=== PATIENT | male | born 1945 | race Caucasian/White ===

== ENCOUNTER → 2016-06-26 | Outpatient (CLI) | payer OTHER ==
[~2016-06-26] MED LIST: ALLEGRA ALLERG180 MG PO; AUGMENTIN 875875 MG PO; CENTRUM SILVER1 EAC2 PO; COUMADIN 5 MG TA5 M1 PO; GLUCOSAMINE1000 MG PO; NEURONTIN300 MG PO; PERCOCET 5-3251 EACH PO; POTASSIUM GLUC500 MG PO; PREVACID30 MG PO; ZESTRIL5 MG PO; ZOSYN 3.3753.375 GM IV
== END ==
LOC: HYPER 06:58
DX: T81.89XA Other complications of procedures, not elsewhere classified, initial encounter (principal); S91.105A Unspecified open wound of left lesser toe(s) without damage to nail, initial encounter; E11.621 Type 2 diabetes mellitus with foot ulcer; L97.521 Non-pressure chronic ulcer of other part of left foot limited to breakdown of skin; E11.69 Type 2 diabetes mellitus with other specified complication; M86.09 Acute hematogenous osteomyelitis, multiple sites; E78.00 Pure hypercholesterolemia, unspecified; I10 Essential (primary) hypertension; Z86.718 Personal history of other venous thrombosis and embolism; Y83.8 Other surgical procedures as the cause of abnormal reaction of the patient, or of later complication, without mention of misadventure at the time of the procedure

== ENCOUNTER → 2016-07-16 | Outpatient (CLI) | payer OTHER | LOC: HYPER 07:15 | DX: T87.89 Other complications of amputation stump (principal); M86.09 Acute hematogenous osteomyelitis, multiple sites; E78.00 Pure hypercholesterolemia, unspecified; I10 Essential (primary) hypertension; Z86.718 Personal history of other venous thrombosis and embolism; Z89.421 Acquired absence of other right toe(s); Z72.89 Other problems related to lifestyle; Y83.5 Amputation of limb(s) as the cause of abnormal reaction of the patient, or of later complication, without mention of misadventure at the time of the procedure ==

== ENCOUNTER → 2016-07-31 | Outpatient (CLI) | payer OTHER | LOC: HYPER 07:14 | DX: T81.89XA Other complications of procedures, not elsewhere classified, initial encounter (principal); S91.105D Unspecified open wound of left lesser toe(s) without damage to nail, subsequent encounter; M86.09 Acute hematogenous osteomyelitis, multiple sites; M86.8X8 Other osteomyelitis, other site; E78.00 Pure hypercholesterolemia, unspecified; I12.9 Hypertensive chronic kidney disease with stage 1 through stage 4 chronic kidney disease, or unspecified chronic kidney disease; N18.9 Chronic kidney disease, unspecified; Z86.718 Personal history of other venous thrombosis and embolism; Y83.8 Other surgical procedures as the cause of abnormal reaction of the patient, or of later complication, without mention of misadventure at the time of the procedure ==

== ENCOUNTER → 2018-03-17 | Outpatient (CLI) | payer OTHER | LOC: HYPER 07:10 | DX: L97.511 Non-pressure chronic ulcer of other part of right foot limited to breakdown of skin (principal); M86.8X7 Other osteomyelitis, ankle and foot; E78.00 Pure hypercholesterolemia, unspecified; G62.9 Polyneuropathy, unspecified; I73.9 Peripheral vascular disease, unspecified; I12.9 Hypertensive chronic kidney disease with stage 1 through stage 4 chronic kidney disease, or unspecified chronic kidney disease; N18.9 Chronic kidney disease, unspecified; Q66.0 Congenital talipes equinovarus; Z89.431 Acquired absence of right foot; Z89.432 Acquired absence of left foot; Z86.718 Personal history of other venous thrombosis and embolism ==

== ENCOUNTER → 2018-11-15 | Outpatient (CLI) | payer OTHER | LOC: HYPER 06:51 | DX: L89.893 Pressure ulcer of other site, stage 3 (principal); L97.511 Non-pressure chronic ulcer of other part of right foot limited to breakdown of skin; I73.9 Peripheral vascular disease, unspecified; I10 Essential (primary) hypertension; M86.8X7 Other osteomyelitis, ankle and foot; E78.00 Pure hypercholesterolemia, unspecified; G62.9 Polyneuropathy, unspecified; M21.371 Foot drop, right foot; Z86.718 Personal history of other venous thrombosis and embolism ==

== ENCOUNTER → 2018-11-19 | Outpatient (CLI) | payer OTHER ==
[~2018-11-19] MED LIST changes: +LEVAQUIN 750 M750 MG PO
== END ==
LOC: MRI 10:31
DX: L97.418 Non-pressure chronic ulcer of right heel and midfoot with other specified severity (principal)

== ENCOUNTER → 2018-11-23 | Outpatient (CLI) | payer OTHER ==
[~2018-11-23] MED LIST changes: -LEVAQUIN 750 M750 MG PO
== END ==
LOC: HYPER 06:45
DX: L89.892 Pressure ulcer of other site, stage 2 (principal); S90.411D Abrasion, right great toe, subsequent encounter; M86.8X8 Other osteomyelitis, other site; L84 Corns and callosities; E78.00 Pure hypercholesterolemia, unspecified; G62.9 Polyneuropathy, unspecified; I10 Essential (primary) hypertension; I73.9 Peripheral vascular disease, unspecified; Z86.718 Personal history of other venous thrombosis and embolism; Z89.422 Acquired absence of other left toe(s); Z89.421 Acquired absence of other right toe(s); X58.XXXD Exposure to other specified factors, subsequent encounter

== ENCOUNTER 2018-12-01 10:55 | Inpatient (IN) | payer OTHER ==
[~2018-12-01] VITALS: Ht 200.7 cm; Wt 131.5 kg
[2018-12-01 13:53] LABS: ABSOLUTE NEUTROPHILS 5.4 thou/uL (1.4-8.2); HEMATOCRIT 43.7 % (42.0-52.0); HEMOGLOBIN 14.8 gm/dL (14.0-18.0); LYMPHOCYTES 21.2 % (24.0-44.0); MCH 31.7 pg (26.0-34.0); MCHC 33.8 g/dL (28.0-37.0); MCV 93.7 fL (80.0-100.0); MONOCYTES 9.2 % (1.0-8.0); PLATELET COUNT 223 thou/uL (150-400); POLYS 63.6 % (36.0-66.0); RBC 4.67 mil/uL (4.50-6.00); RDW 15.2 % (10.5-14.5); WBC 8.5 thou/uL (4.0-11.0)
[2018-12-01 14:15] LABS: APTT 51.6 Seconds (24.5-32.8); INR 3.7; PROTIME 38.4 Seconds (9.3-11.4)
[2018-12-01 14:27] LABS: ALBUMIN 3.2 g/dL (3.4-5.0); CALCIUM 9.1 mg/dL (8.5-10.1); CREATININE 1.2 mg/dL (0.7-1.3); POTASSIUM 4.2 mmol/L (3.5-5.1); TOTAL BILIRUBIN 0.5 mg/dL (<0.1-1.0); TOTAL PROTEIN 7.6 g/dL (6.4-8.2)
[2018-12-01 16:32] VITALS: BP 121/74
[2018-12-01 19:45] VITALS: BP 118/77
--- NOTE | 2018-12-01 20:06 | NUR ---
PATIENT DIRECT ADMIT FROM DOCTOR'S OFFICE. ALERT AND ORIENTED X 4. PATIENT UP WITH CANE AND HAS RIGHT LEG BRACE. PATIENT ADMITTED FOR CELLULITIS TO RIGHT FOOT/NON HEALING RIGHT FOOT ULCER. PHOTO TAKEN AND MEASUREMENTS DONE. DR FRY SAW PATIENT, ALL ADMISSION ORDERS ENTERED IN COMPUTER. PAIENT DENIED PAIN DURING THE SHIFT, C/O SOME THROBBING DURING SHIFT REPORT. ALL LABS DONE. CULTURE OF RIGHT FOOT ULCER DONE. CONSULTS ENTERED BY DR FRY, WOUND CARE/DR LEACH, DR DANIELS/PODIATRY, AND DR COREY, ALL CONSULTS CALLED BY RN. PATIENT HAD IV PLACE BY IV TEAM/BASIL, LEFT FOREARM 22G. PATIENT RECEIVED, LOADING DOSE ZOSYN, AND VANCOMYCIN. ADMISSION DONE EXCEPT CARE PLAN PASSED TO [facility]. WILL CONTINUE TO MONITOR.
--- NOTE | 2018-12-02 02:18 | NUR ---
ASSUMED CRAE FROM DAY SHIFT PT RESTING IN BED NO CONCERNS VOIDED DISCUSSED PLAN OF CARE AND AGREEABLE IV ABX GIVEN PRESCRIBED. PT RESTING WELL THROUGHOUT HOURLY ROUNDS , WILL REPORT CHANGES OR ABNORMAL FINDINGS, WILL CONINTUE WITH PT CURRENT PLAN OF CARE.
[2018-12-02 04:00] VITALS: BP 111/73
[2018-12-02 07:14] VITALS: BP 119/83; BP 164/80
--- NOTE | 2018-12-02 16:00 | NUR ---
ASSESSMENT-PT LIVES AT HOME WITH HIS WHO IS OLDER THAN HE BUT INDEPENDENT. BOTH DRIVE. PT USES A CANE TO GET AROUND AND DOES HIS OWN ADLS. THEY LIVE IN A RANCH STYLE HOME. PT WEARS A FOOT DROP BRACE. DOES MOST OF THE HOUSEHOLD THINGS. THEY HAVE A DTR IN [place] AND [employer] PEOPLE FOR SUPPORT HERE. THEY ARE CONSIDERING MOVING INTO INDEPENDENT LIVING. PT SAYS HE HAS NOT HAD ANY HH SERVICES. HE HAS BEEN TO [facility] IN THE PAST FOR REHAB. FOLLOWING TO ASSIST WITH DC PLANNING.
[2018-12-02 16:28] VITALS: BP 126/91
[2018-12-02 19:07] VITALS: BP 133/91
--- NOTE | 2018-12-02 20:00 | NUR ---
ASSUMED CARE OF PATIENT AT 0715, PATIENT ALERT AND ORIENTED X 4. PATIENT UP WITH SBA, CANE,AND LEG BRACE TO RIGHT FOOT. PATIENT C/O SMALL AMT OF THROBBING TO RIGHT FOOT, BUT REFUSED PAIN MEDS THIS SHIFT. WOUND CARE DONE TO RIGHT FOOT AT 1800. PAIENT HAS LEFT FOREARM IV IN PLACE, RECEIVED ZOSYN IV X 2 THIS SHIFT, CULTURES DONE YESTERDAY AND PENDING. WILL CONTINUE TO MONITOR. PATIENT HAS BILATERAL HEARING AIDS.
[2018-12-03 05:41] VITALS: BP 129/77
[2018-12-03 07:05] VITALS: BP 128/94
--- NOTE | 2018-12-03 07:46 | NUR ---
PRE OWNED SALES MANAGER NOTE; ASSUMED CARE OF PT @1900. PT A&OX4. NO C/O PAIN OVER NIGHT. USES THE URINAL. GETS UP WITH ONE ASSIST STANDBY TO THE BATHROOM. HAS A RIGHT LEG BRACE TO BE WORN AT ALL TIMES WITH AMBULATION. FALL PREC IN PLACE. CALL FINN WITHIN REACH
--- NOTE | 2018-12-03 12:19 | NUR ---
Assess due to pt with cellulitis, nonhealing right foot ulcer, charcot foot. On regular diet, eating 100% of meals. Very tall gentleman 6'7", BMI 32. Has supplement of Ensure Max ordered with meals providing additional 90g protein if 100% consumed. Estimated protein needs ~130g/day using IBW. Low nutrition risk.
[2018-12-03 15:50] VITALS: BP 120/75
--- NOTE | 2018-12-03 18:19 | NUR ---
Patient has been tolerating his IV medications well. Dressing to wound is clean, dry et intact. Wound care nurse changed dressing this am. LSCTA, BS x's 4, abdomen is soft et non-tender (he reports that he had a "normal BM" this morning). Patient denies pain. He has consumed 100% of all three meals, has consumed all fluids provided with each meal. Patient has been educated to increase water consumption from bedside water mug, as he has only been taking "sips" when taking po medications. Will continue to monitor et report to oncoming nurse.
[2018-12-03 19:32] VITALS: BP 136/78
--- NOTE | 2018-12-04 00:45 | NUR ---
ASSUMED CARE OF PT @1900. NO CHANGE IN PT STATUS. NEW ABX STARTED. PT A&OX4. USES THE URINAL AND ALSO GETS UP TO THE BATHROOM WITH STANDBY ASSIST AND R LEG BRACE WITH A CANE. ASSESSMENT BENIGN
[2018-12-04 05:45] VITALS: BP 124/70
[2018-12-04 07:02] VITALS: BP 133/82
--- NOTE | 2018-12-04 12:58 | HC ---
[facility] [place] [address] CONSULTATION Name: RETA CANNON Room #: 427-P ADM IN M.R.#: [id number] Admission: 12/01/18 Attend Phys: Víctor Flores MD Discharge: Date of : 43 Report #: [id number] THIS REPORT FOR: //name// CC: Víctor Santana DATE OF SERVICE: 12/02/2018 INFECTIOUS DISEASE CONSULTATION REASON FOR CONSULTATION: I was asked to evaluate concerning nonhealing right foot wound. HISTORY OF PRESENT ILLNESS: This is a 73-year-old with peripheral vascular disease and peripheral neuropathy, who had previously undergone a right foot ray amputation several years ago. He has a Charcot foot and has had a nonhealing wound to the lateral aspect of the right mid foot over the base of the fourth metatarsal. Recent MRI scan showed no evidence of osteomyelitis or abscess. Does have advanced Charcot foot changes. He had been on oral antibiotics previously. No recent antibiotic therapy. He has an orthotic repair shoe and brace that he wears. No fever, chills or sweats. No increased pain. Current wound care has been topical. Admitted on 12/01/2018 for IV antibiotic therapy and further evaluation. He has been seen by Dr. Amador from Podiatry. ALLERGIES: None known. MEDICATIONS: As noted on his MAR, now on Zosyn. PAST MEDICAL HISTORY: Peripheral neuropathy, peripheral vascular disease, previous laminectomy, right foot fifth ray amputation. FAMILY HISTORY: Noncontributory. SOCIAL HISTORY: Nonsmoker, no significant alcohol intake. Retired cafe site attendant. REVIEW OF SYSTEMS: Ten-point review was negative other than what is described above. PHYSICAL EXAMINATION: GENERAL: He was alert and cooperative and pleasant, in no acute distress. VITAL SIGNS: Stable with no evidence of fever. Blood pressure was stable. SKIN: With no rashes. Has a wound over the lateral aspect of his right foot region of the fourth metatarsal base. There was pressure ulcer with small amount of eschar. There was some thickened skin. He had erythema extending around this leading up to the dorsum of his foot. We could elicit no purulent drainage. The ulceration was fairly shallow. Could not probe to the bone. [facility] [address] [place] [address] CONSULTATION Name: RETA CANNON Room #: 427-P [facility] IN .R.#: [id number] Admission: 12/01/18 Attend Phys: Víctor Flores MD Discharge: Date of : 43 Report #: [id number] There was no fluctuance. He had palpable pulses. Capillary refill was normal. He had decreased sensation in his feet, mostly distal. No palpable adenopathy. HEENT: Eyes, without scleral icterus. Mouth without mucositis. NECK: Supple, with no thyromegaly. LUNGS: Clear. HEART: Regular, without murmur. ABDOMEN: Soft and nontender. GENITORECTAL: Not performed. NEUROLOGIC: Cranial nerves intact. Mood normal. EXTREMITIES: As noted above. LABORATORY STUDIES: Hemoglobin 14.8, WBC 8.5, creatinine 1.2. Previous cultures from the outside are pending. Cultures from yesterday are pending. Blood cultures are pending. IMPRESSION: 1. A 73-year-old with neuropathic ulcer, right foot and associated chronic appearing wound with secondary infection and cellulitis. MRI scan shows no evidence of osteomyelitis or abscess. I am awaiting cultures. 2. Peripheral neuropathy. 3. Peripheral vascular disease. 4. Hypertension. 5. Chronic kidney disease. RECOMMENDATIONS: 1. We will continue IV antibiotic therapy pending culture results. 2. Continue offloading the foot. 3. Continue topical wound care. 4. I have discussed with Podiatry. May be best to arrange a Cam walker for the patient. We will see how he looks tomorrow and consider outpatient antibiotic therapy. <ELECTRONICALLY SIGNED> By: Fili Dietrich MD 12/04/18 1258 37 [id number] Fili Dietrich MD /nt
[2018-12-04 15:19] VITALS: BP 122/79
--- NOTE | 2018-12-04 19:54 | NUR ---
ASSUMED CARE OF THE PATIENT AT 0715, PATIENT ALERT AND ORIENTED X 4. PATIENT UP WITH SBA, CANE AND WEARS LEG BRACE RIGHT LEG WHEN UP WITH AMBULATION. PATIENT DENIES PAIN THIS SHIFT. LEFT HAND IV IN PLACE, DRESSING CHANGED DUE TO BLOOD UNDER DRESSING. RIGHT FOOT WOUND CARE DONE. PATIENT RECEIVED A SHOWER. NEW IV ANTIBIOTIC STARTED LEVOFLOXACIN AT 1800. POSSIBLE D/C TO HOME ON PO ANTIBIOTIC PER DR COREY'S NOTE IF CULTURE RESULTS NOT RECIEVED TOMORROW. WILL CONTINUE TO MONITOR.
[2018-12-04 20:20] VITALS: BP 135/79
--- NOTE | 2018-12-05 03:17 | NUR ---
ASSUMED CARE OF PT @1900. ASSESSMENTS COMPLETED. PT A&OX4. AMBULATES WITH STANDBY ASSIST AND A CANE. PT HAS R LEG BRACE TO BE WORN AT ALL TIMES. PT USES THE URINAL AND GOES TO THE BR FOR A BM. PLAN IS POSSIBLE D/C TODAY.
[2018-12-05 04:12] VITALS: BP 123/75
[2018-12-05 07:20] VITALS: BP 111/76
[2018-12-05] MEDS ORDERED: LEVAQUIN 750 M750 MG PO (14:25)
[2018-12-05 14:52] VITALS: BP 111/76
--- NOTE | 2018-12-05 15:48 | NUR ---
Patient was Discharged to home with Home Health Services in place at 1548. Patient was educated about his medications, post hospitalization treatment orders and follow up appointments. Patient was also educated that he is to be "non-weight bearing on the right leg/foot", and, that he is not to drive until he is medically cleared to do so. Patient verbalized an understanding to all Discharge Instructions prior to signing Discharge Paperwork.
--- NOTE | 2018-12-06 08:31 | HC ---
[facility] [place] [address] CONSULTATION Name: JENAROSYRETA Jay Room #: 427-P [facility] IN M.R.#: [id number] Admission: 12/01/18 Attend Phys: Víctor Flores MD Discharge: 12/05/18 Date of : 43 Report #: [id number] THIS REPORT FOR: //name// CC: Víctor Santana DATE OF SERVICE: 12/02/2018 WOUND CARE CONSULTATION REQUESTING PHYSICIAN: Dr. Larry Santana. CHIEF COMPLAINT: Chronic ulcer, right lateral foot. HISTORY OF PRESENT ILLNESS: This is a 73-year-old white male who has been a patient of mine for several months, who we have been following for chronic ulceration on the lateral aspect of his right foot. The patient has a history of Charcot foot as well as neuropathy. The patient states that after his last visit with me approximately 10 days ago, he was doing fairly well until approximately 3-4 days ago when he started having increasing pain, swelling, redness, and drainage coming from his lateral foot ulcer. The patient saw her sales representative sales manager who recommended he come to the hospital to be admitted for IV antibiotics. I have been asked to follow the patient while he is here. The patient states that he recently was changing his brace on his orthotic shoe and he thinks that might have possibly rubbed and caused some irritation to the wound itself. The patient has been doing his daily wound care dressings as appropriate. The patient denies any other associated wounds at this time. The patient did have a recent MRI within the past month that showed no evidence of osteomyelitis or abscess at that time. PAST MEDICAL HISTORY: Peripheral neuropathy, history of peripheral vascular disease, previous laminectomy, previous right foot fifth ray amputation. CURRENT MEDICATIONS: Multiple, I reviewed the patient's medication list. The patient is currently on IV antibiotics at this time. DRUG ALLERGIES: None. SOCIAL HISTORY: The patient does not smoke or drink alcohol. FAMILY HISTORY: Not pertinent to current medical condition. REVIEW OF SYSTEMS: CONSTITUTIONAL: The patient denies fevers or chills. NEUROLOGIC: The patient has peripheral neuropathy, but denies any isolated numbness, tingling or weakness in his arms or legs. [facility] [address] [place] [address] CONSULTATION Name: RETA CANNON Room #: 427-P [facility] IN [facility].#: [id number] Admission: 12/01/18 Attend Phys: Víctor Flores MD Discharge: 12/05/18 Date of : 43 Report #: [id number] EYES: No complaints. ENT: No complaints. CARDIAC: The patient denies chest pain, palpitations or peripheral edema. RESPIRATORY: The patient denies shortness of breath, cough or wheezes. GASTROINTESTINAL: The patient denies nausea, vomiting or abdominal pain. GENITOURINARY: The patient denies urgency or frequency. MUSCULOSKELETAL: No complaints. SKIN: There is an open ulceration on the right lateral aspect of his foot. PHYSICAL EXAMINATION: VITAL SIGNS: Temperature 36.7, pulse 71, respirations 17, BP 111/76. GENERAL: This is an alert and oriented x 3, pleasant white male who is in absolutely no distress. HEENT: Normocephalic, atraumatic. Mucous membranes are moist. Pupils are round. Sclerae are white. NECK: Supple, nontender. LUNGS: Clear. HEART: Regular. ABDOMEN: Soft, nontender. EXTREMITIES: The patient moves all extremities without difficulty. Distal pulses are intact. Evaluation of the right lateral foot reveals an open ulceration along the lateral aspect of the base of the fifth metatarsal, which is full thickness, which is clean, granulating. There is increased erythema and warmth around the area with some mild swelling of that in the periwound area. No evidence of any involvement of the bone. No other associated wounds are noted. NEUROLOGIC: Cranial nerves 2-12 are grossly intact. Motor and sensory grossly intact. LABORATORY VALUES: White count 8.5, hemoglobin 14.8, sed rate 49, albumin 3.2, C-reactive protein is 38.2. IMPRESSION: 1. Chronic ulceration, right lateral foot with cellulitis, limited to breakdown of subcutaneous tissues. 2. Charcot arthropathy, right foot. 3. Mild protein-calorie malnutrition with an albumin of 3.2. 4. Generalized debility. PLAN: At this time, we will place Aquacel Ag over the ulceration to be changed daily. We will continue IV antibiotics per Infectious Disease recommendations. We will continue all other current medications. I will continue to follow the [address] [address] CONSULTATION Name: RETA CANNON Room #: 427-P DIS IN M.R.#: [id number] Admission: 12/01/18 Attend Phys: Víctor Flores MD Discharge: 12/05/18 Date of : 43 Report #: [id number] patient while he is here. We will also make sure we maximize the patient's oral protein supplementation for healing. <ELECTRONICALLY SIGNED> By: Ky Cerrato MD 12/06/18 0831 [id number] Ky Cerrato MD /nt
--- NOTE | 2018-12-06 14:01 | NUR ---
Received message from nurse stating pt was d/c home on Thursday with home health and a new walker was issued. Pt did not take walker home with him, as he apparently told nurse that he had one at home. Notified [facility] liaison and she will rock picker walk[facility]. No other needs identified.
== END 2018-12-05 15:48 | disposition home health service (06) | DRG 603 ==
LOC: 4E 10:55
PROVIDERS: ADMIT Internal Medicine
DX: L03.115 Cellulitis of right lower limb (principal); E44.1 Mild protein-calorie malnutrition; L89.519 Pressure ulcer of right ankle, unspecified stage; N18.9 Chronic kidney disease, unspecified; M14.671 Charcot's joint, right ankle and foot; M19.90 Unspecified osteoarthritis, unspecified site; E78.5 Hyperlipidemia, unspecified; K21.9 Gastro-esophageal reflux disease without esophagitis; N40.0 Benign prostatic hyperplasia without lower urinary tract symptoms; G89.29 Other chronic pain; I12.9 Hypertensive chronic kidney disease with stage 1 through stage 4 chronic kidney disease, or unspecified chronic kidney disease; I73.9 Peripheral vascular disease, unspecified; G62.9 Polyneuropathy, unspecified; Z89.421 Acquired absence of other right toe(s); Z68.32 Body mass index [BMI] 32.0-32.9, adult; Z86.718 Personal history of other venous thrombosis and embolism; Z79.01 Long term (current) use of anticoagulants
CPT/HCPCS: 10783

== ENCOUNTER → 2018-12-14 | Outpatient (CLI) | payer OTHER ==
[~2018-12-14] MED LIST changes: +LEVAQUIN 750 M750 MG PO
== END ==
LOC: HYPER 07:01
DX: L89.893 Pressure ulcer of other site, stage 3 (principal); I73.9 Peripheral vascular disease, unspecified; E78.00 Pure hypercholesterolemia, unspecified; M86.8X7 Other osteomyelitis, ankle and foot; I10 Essential (primary) hypertension; G62.9 Polyneuropathy, unspecified; L84 Corns and callosities; Z89.422 Acquired absence of other left toe(s); Z86.718 Personal history of other venous thrombosis and embolism; Z89.421 Acquired absence of other right toe(s)

== ENCOUNTER → 2018-12-28 | Outpatient (CLI) | payer OTHER | LOC: HYPER 07:18 | DX: L89.893 Pressure ulcer of other site, stage 3 (principal); I73.9 Peripheral vascular disease, unspecified; I10 Essential (primary) hypertension; L84 Corns and callosities; M86.8X7 Other osteomyelitis, ankle and foot; E78.00 Pure hypercholesterolemia, unspecified; G62.9 Polyneuropathy, unspecified; Z86.718 Personal history of other venous thrombosis and embolism; Z89.422 Acquired absence of other left toe(s) ==

== ENCOUNTER → 2019-01-12 | Outpatient (CLI) | payer OTHER | LOC: HYPER 08:55 | DX: L89.893 Pressure ulcer of other site, stage 3 (principal); I73.9 Peripheral vascular disease, unspecified; G62.9 Polyneuropathy, unspecified; L84 Corns and callosities; E78.00 Pure hypercholesterolemia, unspecified; M86.8X7 Other osteomyelitis, ankle and foot; I10 Essential (primary) hypertension; Z86.718 Personal history of other venous thrombosis and embolism; Z79.01 Long term (current) use of anticoagulants ==

== ENCOUNTER → 2019-01-27 | Outpatient (CLI) | payer OTHER | LOC: HYPER 11:30 | DX: L89.893 Pressure ulcer of other site, stage 3 (principal); L84 Corns and callosities; M86.8X7 Other osteomyelitis, ankle and foot; E78.00 Pure hypercholesterolemia, unspecified; G62.9 Polyneuropathy, unspecified; I73.9 Peripheral vascular disease, unspecified; I10 Essential (primary) hypertension; Z89.421 Acquired absence of other right toe(s); Z89.422 Acquired absence of other left toe(s); Z86.718 Personal history of other venous thrombosis and embolism ==

== ENCOUNTER → 2019-02-14 | Outpatient (CLI) | payer OTHER | LOC: HYPER 07:18 | DX: L89.893 Pressure ulcer of other site, stage 3 (principal); I73.9 Peripheral vascular disease, unspecified; G62.9 Polyneuropathy, unspecified; I10 Essential (primary) hypertension; L84 Corns and callosities; M86.8X8 Other osteomyelitis, other site; E78.00 Pure hypercholesterolemia, unspecified; Z86.718 Personal history of other venous thrombosis and embolism; Z89.422 Acquired absence of other left toe(s); Z89.421 Acquired absence of other right toe(s) ==

== ENCOUNTER 2019-03-23 06:42 | Inpatient (IN) | payer OTHER ==
[~2019-03-23] VITALS: Ht 200.7 cm; Wt 129.0 kg
[~2019-03-23 06:42] MED LIST changes: +ASPIR 8181 M1 PO; +FLOMAX0.4 MG PO; +GLUCOSAMINE CH1 EAC2 PO; +LIPITOR40 MG PO; +PROSCAR 5MG TABL5 MG PO
[2019-03-23 07:25] LABS: HEMATOCRIT 44.4 % (42.0-52.0); HEMOGLOBIN 14.8 gm/dL (14.0-18.0)
[2019-03-23 07:30] VITALS: BP 107/75
[2019-03-23 07:36] LABS: CALCIUM 9.5 mg/dL (8.5-10.1); CREATININE 1.4 mg/dL (0.7-1.3)
[2019-03-23 07:37] LABS: INR 1.5; PROTIME 15.2 Seconds (9.3-11.4)
[2019-03-23 07:43] LABS: ALBUMIN 3.4 g/dL (3.4-5.0); TOTAL BILIRUBIN 0.8 mg/dL (<0.1-1.0); TOTAL PROTEIN 7.5 g/dL (6.4-8.2)
[2019-03-23 14:50] VITALS: BP 104/72
--- NOTE | 2019-03-23 16:08 | NUR ---
73 YO MALE ADMITTED FROM PACU. ALERT THOUGH STATES THAT HE FEELS DISORIENTED. IV INTACT IN R HAND. HARO CATH TO DD DRAINING CLEAR YELLOW URINE. R LOWER EXTREMITY IS COVERED WITH MARC WRAP AND IS D/I. DENIES ANY PAIN. SPOUSE IS AT THE BEDSIDE. OREINTED PT TO ROOM/CALL LIGHT W/I REACH. SCD PLACED TO LEFT LOWER EXTREMITY. TOLERATING CLEARS SLOWLY. DENIES ANY PAIN AT THIS TIME. WILL CONT POC.
[2019-03-23 21:20] VITALS: BP 125/62
--- NOTE | 2019-03-24 04:53 | NUR ---
ASSESSMENT COMPLETED.PT C/O PAIN ON HIS RLE,MANAGED WITH MED.C/O NAUSEA,ZOFRAN X1 GIVEN,EFFECTIVE.PER REPORT,WE SHOULD REINFORCE PT'S DRSG IF IT CONT TO BLEED.DRSG REINFORCED TWICE THIS SHIFT,YARDAGE TUFTING MACHINE OPERATOR ON DUTY NOTIFIED.WILL NOTIFY PHYSICIAN THIS AM.HARO CATH TO DD LIGHT YELLOW URINE NOTED.R LEG ELEVATED WITH PILLOWS.CALL LIGHT WITHIN REACH.
[2019-03-24 05:15] VITALS: BP 91/60
[2019-03-24 05:45] LABS: HEMATOCRIT 37.4 % (42.0-52.0); MCH 30.2 pg (26.0-34.0); MCHC 32.1 g/dL (28.0-37.0); MCV 94.2 fL (80.0-100.0); PLATELET COUNT 176 thou/uL (150-400); RBC 3.98 mil/uL (4.50-6.00); RDW 15.1 % (10.5-14.5); WBC 10.9 thou/uL (4.0-11.0)
[2019-03-24 05:55] LABS: INR 1.4; PROTIME 14.2 Seconds (9.3-11.4)
[2019-03-24 06:03] LABS: CALCIUM 8.3 mg/dL (8.5-10.1); CREATININE 1.4 mg/dL (0.7-1.3); MAGNESIUM 1.6 mg/dL (1.8-2.4); POTASSIUM 4.3 mmol/L (3.5-5.1)
[2019-03-24 07:58] VITALS: BP 97/64
[2019-03-24 09:30] LABS: ABSOLUTE NEUTROPHILS 8.6 thou/uL (1.4-8.2); ANISOCYTOSIS 1+
--- NOTE | 2019-03-24 10:32 | NUR ---
ASSESSMENT-PT LIVES AT HOME WITH HIS WHO IS A LITTLE OLDER BUT INDEPENDENT. PT HAS BEEN USING A CANE TO GET AROUND AND DOES HIS OWN ADLS. PT HAS A AFO FOOT DROP. BOTH DRIVE. THEY LIVE IN A RANCH STYLE HOME. DOES MOST OF THE HOUSEHOLD THINGS. THEY HAVE A DTR IN [place]. THEY HAVE SOME [employer] PEOPLE LOCAL THAT ASSIST. PT HAS BEEN TO [facility] IN THE PAST AND WOULD LIKE TO RETURN THERE. WILL HAVE DC CUSTOMER CARE MANAGER FAX A REFERRAL. PT WILL NEED IV ABX, WOUND CARE AND THERAPIES. FOLLOWING TO ASSIST WITH DC PLANNING.
--- NOTE | 2019-03-24 13:13 | NUR ---
FAXED REFERRAL TO [facility] IN ADMISSION AT [facility]. CONFIRMED SHE RECEIVED REFERRAL. ANTICIPATE DC ON 03/26/19.
[2019-03-24 16:36] VITALS: BP 95/57
--- NOTE | 2019-03-24 18:30 | NUR ---
PT A&OX4, CONFUSED AT TIMES. IV INTACT IN R AC INFUSING FLUIDS W/O COMPS. LEFT FOOT IS WRAPPED WITH MARC WRAP. DRAINAGE HAS SLOWED DOWN FROM LAST NIGHT HAVE NOT HAD TO REINFORCE DRSG THIS SHIFT. HARO REMOVED TODAY AT 16:30, PT SINCE HAS NOT VOIDED. TOLERATING PO PAIN MEDS WELL. WILL CONT POC.
[2019-03-25 04:00] VITALS: BP 103/60
--- NOTE | 2019-03-25 04:54 | NUR ---
ASSUMED PT CARE AT 1900. PT ALERT AND ORIENTED BUT STILL SEEMS A LITTLE CONFUSED. WAS FOUND TRYING TO STAND UP ALONE AND HAD BEEN IN INCONTINENT ON HIS BED. PT GRIMINACING IN PAIN, MEDS GIVEN. PT SLEEPING SOON AFTER. DRESSING HAS BEEN FAIRLY DRY ALL NIGHT. NOT MUCH OUTPUT THIS EVENING, NEEDS TO CONTINUE TO BE MONITORED.
[2019-03-25 06:12] LABS: INR 1.2; PROTIME 12.8 Seconds (9.3-11.4)
[2019-03-25 08:20] VITALS: BP 110/67
--- NOTE | 2019-03-25 10:09 | NUR ---
PATIENT TO POSSIBLY DISCHARGE OVER THE WEEKEND TO [facility]. FAXED DC ORDERS AND SUMMARY TO [phone]. CALL [phone] TO ARRANGE TRANSPORT.
[2019-03-25 16:39] VITALS: BP 105/74
--- NOTE | 2019-03-25 19:41 | NUR ---
Assumed pt care at 7am.Pt in bed resting but has intermittent confusion. Assessment completed.vss.Medicated pt with oxy twice this shift with relief. Hemmer Chainstitch came and change rt foot dressing later this evening.Pt will probably dc to snf in am.
[2019-03-25 20:37] VITALS: BP 100/63
--- NOTE | 2019-03-26 02:15 | NUR ---
ASSUMED PT CARE AT 1900. PT A LOT MORE ALERT TODAY COMPARED TO LAST NIGHT. STILL SLIGHTLY CONFUSED AT TIMES, BUT AWARE OF PLAN TO D/C TO [facility] POSSIBLY TOMORROW. R WRIST IV D/C, NEW 22G STARTED ON L WRIST, FLUIDS INFUSING. PAIN MEDS GIVEN ONCE, PROVIDED RELIEF. DRESSING ON RLE DRY AND INTACT. PT SLEEPING NOW.
[2019-03-26 05:17] LABS: INR 1.2; PROTIME 12.3 Seconds (9.3-11.4)
[2019-03-26 07:35] VITALS: BP 129/87
[2019-03-26 11:04] LABS: HEMATOCRIT 34.3 % (42.0-52.0); HEMOGLOBIN 11.3 gm/dL (14.0-18.0)
[2019-03-26 11:12] LABS: CALCIUM 8.5 mg/dL (8.5-10.1); CREATININE 1.3 mg/dL (0.7-1.3); PHOSPHORUS 2.4 mg/dL (2.5-4.9); POTASSIUM 4.2 mmol/L (3.5-5.1)
[2019-03-26] MEDS ORDERED: KEFLEX500 M1 PO (13:21)
[2019-03-26] MEDS ORDERED: MIRALAX17 GM PO (13:22)
[2019-03-26] MEDS ORDERED: COLACE 100 MG100 MG PO (13:22)
[2019-03-26] MEDS ORDERED: NORCO 5-325 TA1 EAC1 PO (13:24)
--- NOTE | 2019-03-26 14:30 | NUR ---
PT ASSESSED AT START OF SHIFT. PAIN CONTROLLED W/ PAIN MEDS. RT ANKLE SPLINT INTACT W/ MARC WRAP. DSNG CHANGED YESTERDAY BY SURGEON. PT TRANSFERRED TO W/C NWB TO GO TO [facility] AT THIS TIME. DR. BARROW HERE TO DO DISCHARGE ORDERS. ORDERS FAXED TO FACILITY.
== END 2019-03-26 14:00 | DRG 494 ==
LOC: TBA 06:42 → 4S 06:42 → PRE 10:41 → 4S 14:57 → PRE 19:42 → 4S 03-26 14:00
PROVIDERS: Internal Medicine; Nurse Practitioner; Podiatrist Foot & Ankle Surgery; ADMIT Hospitalist
DX: M21.171 Varus deformity, not elsewhere classified, right ankle (principal); L97.511 Non-pressure chronic ulcer of other part of right foot limited to breakdown of skin; M67.01 Short Achilles tendon (acquired), right ankle; M25.371 Other instability, right ankle; L97.519 Non-pressure chronic ulcer of other part of right foot with unspecified severity; M25.374 Other instability, right foot; E78.5 Hyperlipidemia, unspecified; K21.9 Gastro-esophageal reflux disease without esophagitis; E11.22 Type 2 diabetes mellitus with diabetic chronic kidney disease; K59.09 Other constipation; I12.9 Hypertensive chronic kidney disease with stage 1 through stage 4 chronic kidney disease, or unspecified chronic kidney disease; N18.9 Chronic kidney disease, unspecified; E66.9 Obesity, unspecified; Z68.32 Body mass index [BMI] 32.0-32.9, adult; Z79.01 Long term (current) use of anticoagulants; Z79.82 Long term (current) use of aspirin; Z79.899 Other long term (current) drug therapy; Z86.718 Personal history of other venous thrombosis and embolism
CPT/HCPCS: 10102; 50010; 50101; 50386; 50455; 50951; 51468; 51741; 53341; 55430; 56525; 56526; 57091; 57180; 62110; 62900; 64039; 70005

== ENCOUNTER → 2020-09-18 | Outpatient (CLI) | payer OTHER ==
[~2020-09-18] MED LIST changes: +COLACE 100 MG100 MG PO; +KEFLEX500 M1 PO; +MIRALAX17 GM PO; +NORCO 5-325 TA1 EAC1 PO
== END ==
LOC: HYPER 07:44
PROVIDERS: ATTEND Specialist
DX: I70.235 Atherosclerosis of native arteries of right leg with ulceration of other part of foot (principal); L89.893 Pressure ulcer of other site, stage 3; L97.512 Non-pressure chronic ulcer of other part of right foot with fat layer exposed; G61.9 Inflammatory polyneuropathy, unspecified; M86.172 Other acute osteomyelitis, left ankle and foot; L84 Corns and callosities; E78.00 Pure hypercholesterolemia, unspecified; I10 Essential (primary) hypertension; Z86.718 Personal history of other venous thrombosis and embolism; Z98.890 Other specified postprocedural states; Z79.84 Long term (current) use of oral hypoglycemic drugs; Z79.01 Long term (current) use of anticoagulants; Z79.899 Other long term (current) drug therapy; Z89.421 Acquired absence of other right toe(s); Z89.422 Acquired absence of other left toe(s)

== ENCOUNTER → 2020-09-25 | Outpatient (CLI) | payer OTHER | LOC: HYPER 08:06 | PROVIDERS: ATTEND Specialist | DX: I70.235 Atherosclerosis of native arteries of right leg with ulceration of other part of foot (principal); L89.893 Pressure ulcer of other site, stage 3; L97.512 Non-pressure chronic ulcer of other part of right foot with fat layer exposed; L03.115 Cellulitis of right lower limb; G61.9 Inflammatory polyneuropathy, unspecified; M86.172 Other acute osteomyelitis, left ankle and foot; L84 Corns and callosities; E78.00 Pure hypercholesterolemia, unspecified; I10 Essential (primary) hypertension; Z86.718 Personal history of other venous thrombosis and embolism; Z79.84 Long term (current) use of oral hypoglycemic drugs; Z89.421 Acquired absence of other right toe(s); Z89.422 Acquired absence of other left toe(s) ==

== ENCOUNTER → 2020-10-02 | Outpatient (CLI) | payer OTHER | LOC: HYPER 07:47 | PROVIDERS: ATTEND Specialist | DX: L89.893 Pressure ulcer of other site, stage 3 (principal); I70.235 Atherosclerosis of native arteries of right leg with ulceration of other part of foot; L97.512 Non-pressure chronic ulcer of other part of right foot with fat layer exposed; L03.115 Cellulitis of right lower limb; G61.9 Inflammatory polyneuropathy, unspecified; M86.172 Other acute osteomyelitis, left ankle and foot; M86.171 Other acute osteomyelitis, right ankle and foot; L84 Corns and callosities; E78.00 Pure hypercholesterolemia, unspecified; I10 Essential (primary) hypertension; Z86.718 Personal history of other venous thrombosis and embolism; Z98.890 Other specified postprocedural states; Z79.84 Long term (current) use of oral hypoglycemic drugs; Z79.01 Long term (current) use of anticoagulants; Z79.899 Other long term (current) drug therapy; Z89.422 Acquired absence of other left toe(s); Z89.421 Acquired absence of other right toe(s) ==

== ENCOUNTER → 2020-10-09 | Outpatient (CLI) | payer OTHER | LOC: HYPER 08:25 | PROVIDERS: ATTEND Emergency Medicine | DX: L89.893 Pressure ulcer of other site, stage 3 (principal); I70.235 Atherosclerosis of native arteries of right leg with ulceration of other part of foot; L97.512 Non-pressure chronic ulcer of other part of right foot with fat layer exposed; L03.115 Cellulitis of right lower limb; L84 Corns and callosities; G61.9 Inflammatory polyneuropathy, unspecified; M86.172 Other acute osteomyelitis, left ankle and foot; M86.171 Other acute osteomyelitis, right ankle and foot; E78.00 Pure hypercholesterolemia, unspecified; I10 Essential (primary) hypertension; Z86.718 Personal history of other venous thrombosis and embolism; Z79.84 Long term (current) use of oral hypoglycemic drugs; Z79.01 Long term (current) use of anticoagulants; Z89.422 Acquired absence of other left toe(s); Z89.421 Acquired absence of other right toe(s) ==

== ENCOUNTER → 2020-10-23 | Outpatient (CLI) | payer OTHER | LOC: HYPER 07:51 | PROVIDERS: ATTEND Specialist | DX: L89.893 Pressure ulcer of other site, stage 3 (principal); I70.235 Atherosclerosis of native arteries of right leg with ulceration of other part of foot; L97.512 Non-pressure chronic ulcer of other part of right foot with fat layer exposed; L03.115 Cellulitis of right lower limb; L84 Corns and callosities; G61.9 Inflammatory polyneuropathy, unspecified; M86.172 Other acute osteomyelitis, left ankle and foot; M86.171 Other acute osteomyelitis, right ankle and foot; E78.00 Pure hypercholesterolemia, unspecified; I10 Essential (primary) hypertension; Z86.718 Personal history of other venous thrombosis and embolism; Z89.422 Acquired absence of other left toe(s); Z89.421 Acquired absence of other right toe(s) ==

== ENCOUNTER → 2020-10-30 | Outpatient (CLI) | payer OTHER | LOC: HYPER 07:48 | PROVIDERS: ATTEND Specialist | DX: I70.235 Atherosclerosis of native arteries of right leg with ulceration of other part of foot (principal); L89.893 Pressure ulcer of other site, stage 3; L97.512 Non-pressure chronic ulcer of other part of right foot with fat layer exposed; L03.115 Cellulitis of right lower limb; L84 Corns and callosities; G61.9 Inflammatory polyneuropathy, unspecified; M86.172 Other acute osteomyelitis, left ankle and foot; M86.171 Other acute osteomyelitis, right ankle and foot; E78.00 Pure hypercholesterolemia, unspecified; I10 Essential (primary) hypertension; Z86.718 Personal history of other venous thrombosis and embolism; Z89.422 Acquired absence of other left toe(s); Z89.421 Acquired absence of other right toe(s) ==

== ENCOUNTER → 2020-11-01 | Outpatient (CLI) | payer OTHER | LOC: HYPER 07:42 | PROVIDERS: ATTEND Specialist | DX: I70.235 Atherosclerosis of native arteries of right leg with ulceration of other part of foot (principal); L89.893 Pressure ulcer of other site, stage 3; L97.511 Non-pressure chronic ulcer of other part of right foot limited to breakdown of skin; L03.115 Cellulitis of right lower limb; M86.172 Other acute osteomyelitis, left ankle and foot; L84 Corns and callosities; G61.9 Inflammatory polyneuropathy, unspecified; E78.00 Pure hypercholesterolemia, unspecified; I10 Essential (primary) hypertension; Z86.718 Personal history of other venous thrombosis and embolism; Z98.890 Other specified postprocedural states; Z79.01 Long term (current) use of anticoagulants; Z79.84 Long term (current) use of oral hypoglycemic drugs; Z79.899 Other long term (current) drug therapy; Z89.422 Acquired absence of other left toe(s); Z89.421 Acquired absence of other right toe(s) ==

== ENCOUNTER → 2020-11-08 | Outpatient (CLI) | payer OTHER | LOC: HYPER 07:53 | PROVIDERS: ATTEND Emergency Medicine Emergency Medical Services | DX: I70.235 Atherosclerosis of native arteries of right leg with ulceration of other part of foot (principal); L89.893 Pressure ulcer of other site, stage 3; L97.512 Non-pressure chronic ulcer of other part of right foot with fat layer exposed; S90.512A Abrasion, left ankle, initial encounter; S90.812A Abrasion, left foot, initial encounter; S90.415A Abrasion, left lesser toe(s), initial encounter; L03.115 Cellulitis of right lower limb; L84 Corns and callosities; G61.9 Inflammatory polyneuropathy, unspecified; M86.172 Other acute osteomyelitis, left ankle and foot; M86.171 Other acute osteomyelitis, right ankle and foot; E78.00 Pure hypercholesterolemia, unspecified; I10 Essential (primary) hypertension; Z86.718 Personal history of other venous thrombosis and embolism; Z89.422 Acquired absence of other left toe(s); Z89.421 Acquired absence of other right toe(s); X58.XXXA Exposure to other specified factors, initial encounter; Y93.89 Activity, other specified; Y92.89 Other specified places as the place of occurrence of the external cause; Y99.8 Other external cause status ==

== ENCOUNTER → 2020-11-15 | Outpatient (CLI) | payer OTHER | LOC: HYPER 07:33 | PROVIDERS: ATTEND Emergency Medicine | DX: I70.235 Atherosclerosis of native arteries of right leg with ulceration of other part of foot (principal); L97.512 Non-pressure chronic ulcer of other part of right foot with fat layer exposed; L03.115 Cellulitis of right lower limb; S90.812D Abrasion, left foot, subsequent encounter; S90.512D Abrasion, left ankle, subsequent encounter; G61.9 Inflammatory polyneuropathy, unspecified; L84 Corns and callosities; M86.8X7 Other osteomyelitis, ankle and foot; E78.00 Pure hypercholesterolemia, unspecified; I10 Essential (primary) hypertension; Z89.422 Acquired absence of other left toe(s); Z86.718 Personal history of other venous thrombosis and embolism; Z89.421 Acquired absence of other right toe(s); Z98.890 Other specified postprocedural states; Z79.01 Long term (current) use of anticoagulants; Z79.899 Other long term (current) drug therapy; X58.XXXD Exposure to other specified factors, subsequent encounter ==

== ENCOUNTER → 2020-11-22 | Outpatient (CLI) | payer OTHER | LOC: HYPER 08:06 | PROVIDERS: ATTEND Emergency Medicine | DX: I70.235 Atherosclerosis of native arteries of right leg with ulceration of other part of foot (principal); L97.512 Non-pressure chronic ulcer of other part of right foot with fat layer exposed; L03.115 Cellulitis of right lower limb; L84 Corns and callosities; G61.9 Inflammatory polyneuropathy, unspecified; M86.8X7 Other osteomyelitis, ankle and foot; E78.00 Pure hypercholesterolemia, unspecified; I10 Essential (primary) hypertension; Z89.422 Acquired absence of other left toe(s); Z86.718 Personal history of other venous thrombosis and embolism; Z89.421 Acquired absence of other right toe(s); Z79.01 Long term (current) use of anticoagulants ==

== ENCOUNTER → 2020-11-29 | Outpatient (CLI) | payer OTHER | LOC: HYPER 08:34 | PROVIDERS: ATTEND Emergency Medicine Emergency Medical Services | DX: I70.235 Atherosclerosis of native arteries of right leg with ulceration of other part of foot (principal); L97.512 Non-pressure chronic ulcer of other part of right foot with fat layer exposed; S91.105A Unspecified open wound of left lesser toe(s) without damage to nail, initial encounter; L03.115 Cellulitis of right lower limb; G61.9 Inflammatory polyneuropathy, unspecified; L84 Corns and callosities; M86.171 Other acute osteomyelitis, right ankle and foot; E78.00 Pure hypercholesterolemia, unspecified; Z86.718 Personal history of other venous thrombosis and embolism; Z89.422 Acquired absence of other left toe(s); Z89.421 Acquired absence of other right toe(s); Z98.890 Other specified postprocedural states; Z79.01 Long term (current) use of anticoagulants; Z79.84 Long term (current) use of oral hypoglycemic drugs; Z79.899 Other long term (current) drug therapy; X58.XXXA Exposure to other specified factors, initial encounter; Y93.89 Activity, other specified; Y92.89 Other specified places as the place of occurrence of the external cause; Y99.8 Other external cause status ==

== ENCOUNTER → 2020-12-06 | Outpatient (CLI) | payer OTHER | LOC: HYPER 08:34 | PROVIDERS: ATTEND Emergency Medicine | DX: I70.235 Atherosclerosis of native arteries of right leg with ulceration of other part of foot (principal); L97.512 Non-pressure chronic ulcer of other part of right foot with fat layer exposed; S90.415A Abrasion, left lesser toe(s), initial encounter; L03.115 Cellulitis of right lower limb; G61.9 Inflammatory polyneuropathy, unspecified; L84 Corns and callosities; M86.171 Other acute osteomyelitis, right ankle and foot; E78.00 Pure hypercholesterolemia, unspecified; Z86.718 Personal history of other venous thrombosis and embolism; Z89.422 Acquired absence of other left toe(s); Z89.421 Acquired absence of other right toe(s); Z79.01 Long term (current) use of anticoagulants; Z79.84 Long term (current) use of oral hypoglycemic drugs; X58.XXXA Exposure to other specified factors, initial encounter; Y93.89 Activity, other specified; Y92.89 Other specified places as the place of occurrence of the external cause; Y99.8 Other external cause status ==

== ENCOUNTER → 2020-12-13 | Outpatient (CLI) | payer OTHER | LOC: HYPER 07:30 | PROVIDERS: ATTEND Emergency Medicine | DX: I70.235 Atherosclerosis of native arteries of right leg with ulceration of other part of foot (principal); L97.512 Non-pressure chronic ulcer of other part of right foot with fat layer exposed; I70.245 Atherosclerosis of native arteries of left leg with ulceration of other part of foot; L97.521 Non-pressure chronic ulcer of other part of left foot limited to breakdown of skin; L03.115 Cellulitis of right lower limb; G61.9 Inflammatory polyneuropathy, unspecified; L84 Corns and callosities; M86.171 Other acute osteomyelitis, right ankle and foot; I10 Essential (primary) hypertension; E78.00 Pure hypercholesterolemia, unspecified; Z86.718 Personal history of other venous thrombosis and embolism; Z89.422 Acquired absence of other left toe(s); Z89.421 Acquired absence of other right toe(s); Z79.01 Long term (current) use of anticoagulants; Z79.84 Long term (current) use of oral hypoglycemic drugs ==

== ENCOUNTER → 2020-12-21 | Outpatient (CLI) | payer OTHER | LOC: HYPER 07:44 | PROVIDERS: ATTEND Emergency Medicine | DX: E11.621 Type 2 diabetes mellitus with foot ulcer (principal); L97.522 Non-pressure chronic ulcer of other part of left foot with fat layer exposed; I70.235 Atherosclerosis of native arteries of right leg with ulceration of other part of foot; L97.512 Non-pressure chronic ulcer of other part of right foot with fat layer exposed; L84 Corns and callosities; L03.115 Cellulitis of right lower limb; E11.42 Type 2 diabetes mellitus with diabetic polyneuropathy; E11.69 Type 2 diabetes mellitus with other specified complication; M86.172 Other acute osteomyelitis, left ankle and foot; M86.171 Other acute osteomyelitis, right ankle and foot; E78.00 Pure hypercholesterolemia, unspecified; I10 Essential (primary) hypertension; Z86.718 Personal history of other venous thrombosis and embolism; Z98.890 Other specified postprocedural states; Z79.01 Long term (current) use of anticoagulants; Z79.899 Other long term (current) drug therapy; Z89.421 Acquired absence of other right toe(s); Z89.422 Acquired absence of other left toe(s) ==

== ENCOUNTER → 2021-01-04 | Outpatient (CLI) | payer OTHER | LOC: HYPER 07:57 | PROVIDERS: ATTEND Emergency Medicine Emergency Medical Services | DX: I70.235 Atherosclerosis of native arteries of right leg with ulceration of other part of foot (principal); L97.512 Non-pressure chronic ulcer of other part of right foot with fat layer exposed; L03.115 Cellulitis of right lower limb; G61.9 Inflammatory polyneuropathy, unspecified; L84 Corns and callosities; M86.171 Other acute osteomyelitis, right ankle and foot; E78.00 Pure hypercholesterolemia, unspecified; I10 Essential (primary) hypertension; Z86.718 Personal history of other venous thrombosis and embolism; Z89.422 Acquired absence of other left toe(s); Z89.421 Acquired absence of other right toe(s); Z79.4 Long term (current) use of insulin; Z79.899 Other long term (current) drug therapy ==

== ENCOUNTER → 2021-01-17 | Outpatient (CLI) | payer OTHER | LOC: HYPER 09:20 | PROVIDERS: ATTEND Emergency Medicine | DX: E11.621 Type 2 diabetes mellitus with foot ulcer (principal); I70.235 Atherosclerosis of native arteries of right leg with ulceration of other part of foot; L97.512 Non-pressure chronic ulcer of other part of right foot with fat layer exposed; I70.245 Atherosclerosis of native arteries of left leg with ulceration of other part of foot; L97.522 Non-pressure chronic ulcer of other part of left foot with fat layer exposed; L03.115 Cellulitis of right lower limb; L84 Corns and callosities; E11.69 Type 2 diabetes mellitus with other specified complication; M86.171 Other acute osteomyelitis, right ankle and foot; G61.9 Inflammatory polyneuropathy, unspecified; E78.00 Pure hypercholesterolemia, unspecified; I10 Essential (primary) hypertension; Z86.718 Personal history of other venous thrombosis and embolism; Z89.422 Acquired absence of other left toe(s); Z89.421 Acquired absence of other right toe(s); Z79.4 Long term (current) use of insulin ==

== ENCOUNTER → 2021-01-31 | Outpatient (CLI) | payer OTHER | LOC: HYPER 07:45 | PROVIDERS: ATTEND Emergency Medicine | DX: E11.621 Type 2 diabetes mellitus with foot ulcer (principal); L97.412 Non-pressure chronic ulcer of right heel and midfoot with fat layer exposed; L97.422 Non-pressure chronic ulcer of left heel and midfoot with fat layer exposed; L03.115 Cellulitis of right lower limb; L84 Corns and callosities; E11.69 Type 2 diabetes mellitus with other specified complication; M86.171 Other acute osteomyelitis, right ankle and foot; G61.9 Inflammatory polyneuropathy, unspecified; E78.00 Pure hypercholesterolemia, unspecified; I10 Essential (primary) hypertension; Z86.718 Personal history of other venous thrombosis and embolism; Z89.422 Acquired absence of other left toe(s); Z89.421 Acquired absence of other right toe(s); Z79.4 Long term (current) use of insulin ==

== ENCOUNTER → 2021-02-12 | Outpatient (CLI) | payer OTHER | LOC: HYPER 08:33 | PROVIDERS: ATTEND Specialist | DX: E11.621 Type 2 diabetes mellitus with foot ulcer (principal); L97.412 Non-pressure chronic ulcer of right heel and midfoot with fat layer exposed; L97.422 Non-pressure chronic ulcer of left heel and midfoot with fat layer exposed; L03.115 Cellulitis of right lower limb; L84 Corns and callosities; E11.69 Type 2 diabetes mellitus with other specified complication; M86.171 Other acute osteomyelitis, right ankle and foot; G61.9 Inflammatory polyneuropathy, unspecified; E78.00 Pure hypercholesterolemia, unspecified; I10 Essential (primary) hypertension; Z86.718 Personal history of other venous thrombosis and embolism; Z89.422 Acquired absence of other left toe(s); Z89.421 Acquired absence of other right toe(s); Z79.4 Long term (current) use of insulin ==

== ENCOUNTER → 2021-02-27 | Outpatient (CLI) | payer OTHER | LOC: HYPER 11:05 | PROVIDERS: ATTEND Emergency Medicine | DX: E11.621 Type 2 diabetes mellitus with foot ulcer (principal); L97.412 Non-pressure chronic ulcer of right heel and midfoot with fat layer exposed; L97.422 Non-pressure chronic ulcer of left heel and midfoot with fat layer exposed; L03.115 Cellulitis of right lower limb; L84 Corns and callosities; E11.69 Type 2 diabetes mellitus with other specified complication; M86.171 Other acute osteomyelitis, right ankle and foot; G61.9 Inflammatory polyneuropathy, unspecified; E78.00 Pure hypercholesterolemia, unspecified; I10 Essential (primary) hypertension; Z86.718 Personal history of other venous thrombosis and embolism; Z89.422 Acquired absence of other left toe(s); Z89.421 Acquired absence of other right toe(s); Z79.4 Long term (current) use of insulin ==

== ENCOUNTER → 2021-03-20 | Outpatient (CLI) | payer OTHER | LOC: HYPER 13:39 | PROVIDERS: ATTEND Emergency Medicine | DX: L97.512 Non-pressure chronic ulcer of other part of right foot with fat layer exposed (principal); L97.522 Non-pressure chronic ulcer of other part of left foot with fat layer exposed; G61.9 Inflammatory polyneuropathy, unspecified; M86.172 Other acute osteomyelitis, left ankle and foot; R26.89 Other abnormalities of gait and mobility; L84 Corns and callosities; E78.00 Pure hypercholesterolemia, unspecified; I10 Essential (primary) hypertension; Z86.718 Personal history of other venous thrombosis and embolism; Z79.01 Long term (current) use of anticoagulants; Z79.899 Other long term (current) drug therapy; Z89.422 Acquired absence of other left toe(s); Z89.421 Acquired absence of other right toe(s) ==

== ENCOUNTER → 2021-04-11 | Outpatient (CLI) | payer OTHER | LOC: HYPER 09:56 | PROVIDERS: ATTEND Emergency Medicine | DX: L97.412 Non-pressure chronic ulcer of right heel and midfoot with fat layer exposed (principal); L97.422 Non-pressure chronic ulcer of left heel and midfoot with fat layer exposed; L84 Corns and callosities; G61.9 Inflammatory polyneuropathy, unspecified; M86.172 Other acute osteomyelitis, left ankle and foot; R26.89 Other abnormalities of gait and mobility; E78.00 Pure hypercholesterolemia, unspecified; I10 Essential (primary) hypertension; Z86.718 Personal history of other venous thrombosis and embolism; Z79.01 Long term (current) use of anticoagulants; Z89.422 Acquired absence of other left toe(s); Z89.421 Acquired absence of other right toe(s) ==

== ENCOUNTER → 2021-05-02 | Outpatient (CLI) | payer OTHER | LOC: HYPER 08:19 | PROVIDERS: ATTEND Emergency Medicine | DX: L97.512 Non-pressure chronic ulcer of other part of right foot with fat layer exposed (principal); L97.522 Non-pressure chronic ulcer of other part of left foot with fat layer exposed; L84 Corns and callosities; G61.9 Inflammatory polyneuropathy, unspecified; M86.172 Other acute osteomyelitis, left ankle and foot; R26.89 Other abnormalities of gait and mobility; E78.00 Pure hypercholesterolemia, unspecified; I10 Essential (primary) hypertension; Z86.718 Personal history of other venous thrombosis and embolism; Z79.01 Long term (current) use of anticoagulants; Z89.422 Acquired absence of other left toe(s); Z89.421 Acquired absence of other right toe(s) ==